=== PATIENT | female | born 1995 | race Hispanic/Latino ===

== ENCOUNTER 2016-10-04 00:59 | Emergency (ER) | payer OTHER ==
[~2016-10-04 00:59] MED LIST: ANTIVERT 25MG #1 PAC PO; FIORICET 325 MG1 TAB PO; FLEXERIL10 MG PO; IMITREX50 MG PO; LOMOTIL 2.5-0.1 EACH PO; MOTRIN 600 MG600 MG PO; PERCOCET 325 MG1 TA2 PO; PHENERGAN25 M1 PO; PRILOSEC OTC20 M1 PO; ZOFRAN ODT4 M1 SL; ZOFRAN4 M1 PO
--- NOTE | 2016-10-04 01:36 | ED NECK/BACK PAIN COMPLAINT ---
History of Present Illness General Chief Complaint: Fall Stated Complaint: "PER PT FELL, LOWER BACK PAIN" Source: patient, family Exam Limitations: no limitations Vital Signs & Intake/Output Vital Signs & Intake/Output Vital Signs Date Time Temp Pulse Resp B/P Pulse O2 O2 Flow FiO2 Ox Delivery Rate 10/04 0444 96.6 76 18 106/56 97 Room Air 10/04 0330 97.8 87 18 138/76 99 Room Air 10/04 0140 99 Room Air 10/04 0130 97.3 98 18 140/86 99 Room Air Allergies Coded Allergies: NO KNOWN ALLERGIES (10/04/16) Reconcile Medications Levothyroxine Sodium 50 MCG TABLET 1 TAB PO DAILY THYROID (Reported) Metformin HCl (Metformin HCl ER) 500 MG TAB.ER.24H 1 TAB PO BID DM (Reported) Omeprazole Magnesium (Prilosec Otc) 20 MG TABLET.DR 1 TAB PO DAILY dolor en el stomago/stomach pa Triage Note: TRIAGE: PATIENT TO ER FROM HOME REPORTING SEVERE LOW BACK PAIN S/P FALL ON ICE, REPORTS LANDED ON BACK/ BUTTOCKS. DENIES HITTING HEAD/LOC/THINNERS. PATIENT NOTED W/ POSITION CHANGES ASSISTED BY SPOUSE. *PATIENT PRIMARILY UZBEK SPEAKING, SPOUSE ASSISTING W/ TRANSLATION. Triage Nurses Notes Reviewed? yes : No Patient currently breastfeeds: No HPI: Earlier this evening the patient slipped on the ice and fell backwards landing on her back. Patient is complaining of 10 pain over lower back. There is no radiation of the pain. The pain is constant. The pain is sharp but aching in nature. Pain increased with movement. Patient denies hitting her head and there was no loss of consciousness. Patient denies any neck pain. There is no difficulty breathing. There is no nausea or vomiting. Past History Travel History Traveled to [place] past 21 day No Medical History Any Pertinent Medical History? 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 No Review of Systems Review of Systems Constitutional: Reports: no symptoms. Ears, Nose, Throat, Mouth: Reports: no symptoms. Respiratory: Reports: no symptoms. Cardiovascular: Reports: no symptoms. Gastrointestinal/Abdominal: Reports: no symptoms. Musculoskeletal: Reports: see HPI, back pain. Neurological/Psychological: Reports: no symptoms. Physical Exam Physical Exam General Appearance: well developed/nourished, alert, awake, anxious, moderate distress Head: atraumatic, normal appearance Eyes: Bilateral: PERRL, EOMI. Neck: normal inspection, supple, full range of motion, no midline tenderness Respiratory: normal breath sounds, chest non-tender, no respiratory distress, lungs clear Cardiovascular: regular rate/rhythm, normal peripheral pulses Gastrointestinal: normal bowel sounds, soft, non-tender, no organomegaly Back: normal inspection, normal range of motion, muscle spasm Extremities: non-tender, normal range of motion Straight Leg Raising: Right: Negative. Left: Negative. Neurologic/Psych: no motor/sensory deficits, awake, alert, oriented x 3, normal gait, normal mood/affect Progress Differential Diagnosis: myofascial strain, T/L spine injury Plan of Care: Orders Procedure Date/time Status URINE 10/04 134 Complete URINALYSIS 10/04 134 Complete Current Medications Sig/Lizbeth Start time Last Medication Dose Stop Time Status Admin Insulin Human Regular 10 UNITS ONCE ONE 10/04 044 CAN (Novolin R Inj) 10/04 0446 Insulin Human Regular 100 UNIT Q24H 10/04 044 CAN (Novolin R (Insulin Drip)) Sodium Chloride 100 ML (Normal Saline 0.9%) Laboratory Tests 10/04/16 0249: Urinalysis LIGHT H, Urine Color YEL, Urine Clarity HAZY H, Urine pH 6.0, Ur Specific [place] 1.015, Urine Protein NEG, Urine Ketones NEG, Urine Nitrite NEG, Urine Bilirubin NEG, Urine Urobilinogen 0.2, Ur Leukocyte Esterase NEG, Ur Microscopic SEDIMENT EXAMINED, Urine RBC 10-15 H, Urine WBC 5-10 H, Ur Epithelial Cells MOD H, Urine Mucus FEW, Urine Hemoglobin MOD H, Urine Glucose >=1000 H, Urine Test NEGATIVE Diagnostic Imaging: Viewed by Me: CT Scan. Discussed w/RAD: CT Scan. Radiology Impression: PATIENT: BHARTI DE LA CRUZ PRESENT AGE: 20 PATIENT ACCOUNT NO: [id number] : 95 LOCATION: [facility] ORDERING PHYSICIAN: KAMAR SOOD MD SERVICE DATE: 10/04/16 EXAM TYPE: CAT - CT ABD & PELVIS W/O IV CONTRAS EXAMINATION: CT ABDOMEN AND PELVIS WITHOUT CONTRAST CLINICAL INFORMATION: Fall on back, pain, hematuria COMPARISON: 2014 TECHNIQUE: Multidetector volumetric imaging was performed from the superior aspect of the liver through the pubic symphysis. Sagittal and coronal reformatted images were obtained on the technologist's workstation. DLP: 929.27 mGy-cm FINDINGS: LUNG BASES: The visualized lung bases are unremarkable. LIVER, GALLBLADDER, AND BILIARY TREE: Some of the liver parenchyma demonstrates low attenuation, suspicious for steatosis. No focal hepatic lesion or biliary ductal dilatation is present. Patient is status post cholecystectomy. PANCREAS: Unremarkable. SPLEEN: Unremarkable. ADRENAL GLANDS: Unremarkable. KIDNEYS AND URETERS: The kidneys are normal in size, shape, and attenuation. No hydronephrosis, hydroureter, or calculi seen. No perinephric stranding. BLADDER: Unremarkable. GASTROINTESTINAL TRACT: The small and large bowel are unremarkable. The appendix is unremarkable. ABDOMINAL WALL: No significant hernia is appreciated. LYMPH NODES: Scattered mesenteric and retroperitoneal subcentimeter lymph nodes are present, without significant enlargement by size criteria. VASCULAR: Unremarkable. PELVIC VISCERA: Unremarkable. OSSEOUS STRUCTURES: Unremarkable. IMPRESSION: 1. No acute findings identified in the abdomen/pelvis. Suboptimal assessment of solid organs in the absence of intravenous contrast. 2. Hepatic steatosis. DICTATED BY: REENA IYER MD DATE/TIME DICTATED:10/04/16500 TOWER DIRECTOR:RITESH DATE/TIME TRANSCRIBED:10/04/16500 CONFIDENTIAL, DO NOT COPY WITHOUT APPROPRIATE AUTHORIZATION. <Electronically signed in Other Vendor System> SIGNED BY: REENA IYER MD 10/04/1616 Departure Departure Disposition: HOME OR SELF CARE Condition: Stable Clinical Impression Primary Impression: Back pain Secondary Impressions: Hematuria Referrals: PATIENT HAS NO PRIMARY CARE DR (PCP/Family) Additional Instructions: RETURN IF SYMPTOMS WORSEN OR FOR ANY CONCERNS Departure Forms: Customer Survey General Discharge Information Prescriptions: Current Visit Scripts Cyclobenzaprine HCl 1 TAB PO Q8P #20 TAB Oxycodone HCl/Acetaminophen (Percocet 5-325 MG Tablet) 1-2 TAB PO Q6P PRN PAIN #20 TAB
[2016-10-04] MEDS ORDERED: LEVOTHYROXINE50 MCG PO (01:42)
[2016-10-04] MEDS ORDERED: METFORMIN HCL500 M4 PO (01:42)
--- NOTE | 2016-10-04 05:16 | CT SCAN REPORT ---
EXAMINATION: CT ABDOMEN AND PELVIS WITHOUT CONTRAST CLINICAL INFORMATION: Fall on back, pain, hematuria COMPARISON: 04/11/2015 TECHNIQUE: Multidetector volumetric imaging was performed from the superior aspect of the liver through the pubic symphysis. Sagittal and coronal reformatted images were obtained on the technologist's workstation. DLP: 929.27 mGy-cm FINDINGS: LUNG BASES: The visualized lung bases are unremarkable. LIVER, GALLBLADDER, AND BILIARY TREE: Some of the liver parenchyma demonstrates low attenuation, suspicious for steatosis. No focal hepatic lesion or biliary ductal dilatation is present. Patient is status post cholecystectomy. PANCREAS: Unremarkable. SPLEEN: Unremarkable. ADRENAL GLANDS: Unremarkable. KIDNEYS AND URETERS: The kidneys are normal in size, shape, and attenuation. No hydronephrosis, hydroureter, or calculi seen. No perinephric stranding. BLADDER: Unremarkable. GASTROINTESTINAL TRACT: The small and large bowel are unremarkable. The appendix is unremarkable. ABDOMINAL WALL: No significant hernia is appreciated. LYMPH NODES: Scattered mesenteric and retroperitoneal subcentimeter lymph nodes are present, without significant enlargement by size criteria. VASCULAR: Unremarkable. PELVIC VISCERA: Unremarkable. OSSEOUS STRUCTURES: Unremarkable. IMPRESSION: 1. No acute findings identified in the abdomen/pelvis. Suboptimal assessment of solid organs in the absence of intravenous contrast. 2. Hepatic steatosis.
[2016-10-04] MEDS ORDERED: CYCLOBENZAPRINE10 M1 PO (05:22)
[2016-10-04] MEDS ORDERED: PERCOCET 5-3251 EACH PO (05:22)
[2016-10-04 06:13] VITALS: BP 100/59
== END 2016-10-04 06:15 ==
LOC: ERH 00:59
DX: M54.5 Low back pain (principal)
CPT/HCPCS: 74176; 81001; 81025; 96372; J1885

== ENCOUNTER 2018-03-13 23:00 | Emergency (ER) | payer OTHER ==
[~2018-03-13] VITALS: Ht 154.9 cm; Wt 83.9 kg
[~2018-03-13 23:00] MED LIST changes: +CYCLOBENZAPRINE10 M1 PO; +KEFLEX500 M1 PO; +LEVOTHYROXINE50 MCG PO; +METFORMIN HCL500 M4 PO; +PERCOCET 5-3251 EACH PO
[2018-03-13 23:03] VITALS: BP 158/91
[2018-03-13] MEDS ORDERED: KEFLEX500 M1 PO (23:08)
[2018-03-13] MEDS ORDERED: BACTRIM DS TAB1 EACH PO (23:08)
--- NOTE | 2018-03-13 23:08 | ED SKIN/ALLERGY COMPLAINT ---
History of Present Illness General Chief Complaint: Skin Rash/ Abcess Stated Complaint: HERE FRI WITH ABSCESS ON BACK,NOW WORSE AND BIGGER Source: patient Exam Limitations: no limitations Vital Signs & Intake/Output Vital Signs & Intake/Output Vital Signs Date Time Temp Pulse Resp B/P B/P Pulse O2 O2 Flow FiO2 Mean Ox Delivery Rate 03/13 2303 99.1 93 18 158/91 98 Room Air ED Intake and Output 03/14 0000 03/13 1200 Intake Total Output Total Balance Patient 185 lb Weight Weight Reported by Patient Measurement Method Allergies Coded Allergies: No Known Allergies (03/09/18) Reconcile Medications Cephalexin (Keflex) 500 MG CAPSULE 1 CAP PO 4 TIMES/DAY INFECTION Cephalexin (Keflex) 500 MG CAPSULE 1 CAP PO BID CELLULITIS Cyclobenzaprine HCl 10 MG TABLET 1 TAB PO Q8P PAIN OR SPASM Levothyroxine Sodium 50 MCG TABLET 1 TAB PO DAILY THYROID (Reported) Metformin HCl (Metformin HCl ER) 500 MG TAB.ER.24H 1 TAB PO BID DM (Reported) Omeprazole Magnesium (Prilosec Otc) 20 MG TABLET.DR 1 TAB PO DAILY dolor en el stomago/stomach pa Oxycodone HCl/Acetaminophen (Percocet 5-325 MG Tablet) 5 MG-325 MG TABLET 1-2 TAB PO Q6P PRN PAIN Sulfamethoxazole/Trimethoprim (Bactrim Ds Tablet) 800 MG-160 MG TABLET 1 TAB PO BID INFECION Triage Note: PT FROM HOME C/O ABCESS TO LOWER BACK X4 DAY. PT SEEN HERE IN ER AND GIVEN ANTIBIOTICS. PT STATES THE ABCESS HAS GROWN IN SIZE AND BECOME MORE PAINFUL, MD TOLD PT TO COME BACK. VSS. LOW GRADE TEMP 99.1 Triage Nurses Notes Reviewed? yes Onset: Gradual Duration: day(s): Timing: recent history Severity: mild, moderate Location: lower back Possible Factors: infection Modifying Factors: Worsens With: scratching. Associated Symptoms: redness, pain, drainage : No Patient currently breastfeeds: No HPI: 22 yo woman with lower lumbar area of redness, swelling, and drainage. She shares that she was seen previously, started on keflex, but notes continued redness, pain, and swelling, and even a small amount of drainage. She is otherwise well, without fever, chills. Past History Travel History Traveled to [place] past 21 day No Medical History Any Pertinent Medical History? 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 No Review of Systems Review of Systems Constitutional: Reports: no symptoms. EENTM: Reports: no symptoms. Respiratory: Reports: no symptoms. Cardiovascular: Reports: no symptoms. GI: Reports: no symptoms. Genitourinary: Reports: no symptoms. Musculoskeletal: Reports: no symptoms. Skin: Reports: no symptoms. Neurological/Psychological: Reports: no symptoms. Hematologic/Endocrine: Reports: no symptoms. Immunologic/Allergic: Reports: no symptoms. All Other Systems: Reviewed and Negative Physical Exam Physical Exam General Appearance: well developed/nourished, no apparent distress Head: atraumatic, normal appearance Eyes: Bilateral: normal appearance. Ears, Nose, Throat: normal pharynx Neck: normal inspection Respiratory: no respiratory distress Back: 3cm area of induration and tenderness w/ central punctate area with minimal drainage of pus. Extremities: normal inspection Neurologic/Psych: no motor/sensory deficits, awake, alert, oriented x 3 Skin: intact, normal color, warm/dry Progress Differential Diagnosis: abscess vs cellulitis vs other Plan of Care: will increase keflex from bid to qid and add bactrim... pt instructed to return in 24 hours for a wound check. Departure Departure Disposition: HOME OR SELF CARE Condition: Stable Clinical Impression Primary Impression: Abscess Referrals: Patient Has No Primary Care Dr (PCP/Family) Departure Forms: Customer Survey General Discharge Information Prescriptions: Current Visit Scripts Sulfamethoxazole/Trimethoprim (Bactrim Ds Tablet) 1 TAB PO BID #20 TAB Cephalexin (Keflex) 1 CAP PO 4 TIMES/DAY #40 CAP Procedures Incision and Drainage Site: lower back Blade Size: 11 I & D Procedure: Yes: betadine prep, sterile drapes applied, sterile dressing applied. Progress: 3cm of yellow purulent drainage from simple superficial abscess.
== END 2018-03-14 01:02 ==
LOC: ERH 23:00
DX: L02.212 Cutaneous abscess of back [any part, except buttock and flank] (principal)